=== PATIENT | female | born 1985 | race Caucasian/White ===

== ENCOUNTER 2019-10-07 18:09 | Emergency (ER) | payer MEDICAID ==
[~2019-10-07] VITALS: Ht 162.6 cm; Wt 73.5 kg
[~2019-10-07 18:09] MED LIST: IBUP-1986 PO; LIDOcaine 1% W/epiNEPHrine 1:100,000 20ml vial ONE
[2019-10-07 18:21] VITALS: BP 130/81
[2019-10-07] MEDS ORDERED: bacitracin 15gm ointment TP ONE (19:05)
== END 2019-10-07 20:50 | disposition home or self-care (01) ==
LOC: ER 18:10
DX: S61.210A Laceration without foreign body of right index finger without damage to nail, initial encounter (principal); Z98.890 Other specified postprocedural states; Z79.899 Other long term (current) drug therapy; W25.XXXA Contact with sharp glass, initial encounter; Y93.G1 Activity, food preparation and clean up; Y92.89 Other specified places as the place of occurrence of the external cause; Y99.8 Other external cause status
CPT/HCPCS: 12002; 99283

== ENCOUNTER 2019-10-14 17:12 | Emergency (ER) | payer MEDICAID ==
[~2019-10-14] VITALS: Ht 162.6 cm; Wt 76.7 kg
[~2019-10-14 17:12] MED LIST changes: -LIDOcaine 1% W/epiNEPHrine 1:100,000 20ml vial ONE
[2019-10-14 17:50] VITALS: BP 120/74
== END 2019-10-14 18:25 | disposition home or self-care (01) ==
LOC: ER 17:13
DX: S61.210D Laceration without foreign body of right index finger without damage to nail, subsequent encounter (principal); W25.XXXD Contact with sharp glass, subsequent encounter
CPT/HCPCS: 99281

== ENCOUNTER 2023-02-20 07:58 | Emergency (ER) | payer MEDICAID ==
[~2023-02-20] VITALS: Ht 162.6 cm; Wt 69.8 kg
[2023-02-20 08:04] VITALS: BP 108/70
[2023-02-20] MEDS ORDERED: dexamethasone sod phosphate 10mg/ml inj PO STA (08:24)
[2023-02-20] MEDS ORDERED: AMOX-101 PO (08:24)
== END 2023-02-20 08:38 | disposition home or self-care (01) ==
LOC: ER 07:59
DX: J02.9 Acute pharyngitis, unspecified (principal)
CPT/HCPCS: 99283; J1100

== ENCOUNTER 2024-06-16 07:10 | Emergency (ER) | payer MEDICAID, BC ==
[~2024-06-16] VITALS: Ht 162.6 cm; Wt 64.6 kg
[2024-06-16 07:26] VITALS: BP 128/77
[2024-06-16] MEDS: ibuprofen tablet 400 MG TABLET PO ONE (07:50)
[2024-06-16] MEDS: phenazopyridine 100mg tablet PO ONE (07:50)
[2024-06-16 08:45] LABS: URINE HCG NEGATIVE (NEG)
[2024-06-16 09:25] LABS: BILIRUBIN,URINE NEGATIVE (Neg); CLARITY,URINE CLOUDY (Clear); COLOR,URINE YELLOW (Yellow); GLUCOSE, URINE NEGATIVE (Neg); KETONES,URINE TRACE mg/dl (Neg); LEUKOCYTE ESTERASE ,URINE MODERATE (Neg); NITRITES, URINE NEGATIVE (Neg); OCCULT BLOOD,URINE LARGE (Neg); PROTEIN,URINE TRACE mg/dl (Neg); UA COLLECTION TYPE CLN CATCH MIDSTREAM; UROBILINOGEN,URINE 0.2 E.U/dL (0.2-1.0)
[2024-06-16 09:30] LABS: SQUAMOUS EPITHELIAL CELL,UR MODERATE /LPF (FEW); WBC CLUMPS,URINE MANY /HPF (NEGATIVE); WBC,URINE TNTC /HPF (0-4)
[2024-06-16 09:31] LABS: BACTERIA,URINE 2+ /HPF (Neg); RBC,URINE 20-50 /HPF (0-2)
[2024-06-16] MEDS ORDERED: PHEN-786 PO (09:49)
[2024-06-16] MEDS ORDERED: CEPH-585 PO (09:49)
[2024-06-16 09:52] VITALS: PULSE 87; RESP 16; TEMP 97.9; O2SAT 99
== END 2024-06-16 09:53 | disposition home or self-care (01) ==
LOC: ER 07:11
DX: N39.0 Urinary tract infection, site not specified (principal); Z79.1 Long term (current) use of non-steroidal anti-inflammatories (NSAID)
CPT/HCPCS: 81001; 81025; 87088; 99283